=== PATIENT | male | born 1950 | race Caucasian/White ===

== ENCOUNTER 2017-08-01 13:25 | Emergency (ER) | payer OTHER ==
[~2017-08-01] VITALS: Ht 525.8 cm; Wt 93.9 kg
[2017-08-01 16:17] VITALS: BP 136/68
== END 2017-08-01 16:17 | disposition home or self-care (01) ==
LOC: ED 13:25
DX: M54.5 Low back pain (principal); I10 Essential (primary) hypertension; K21.9 Gastro-esophageal reflux disease without esophagitis; Z79.899 Other long term (current) drug therapy
CPT/HCPCS: J1885

== ENCOUNTER 2018-12-27 20:31 | Emergency (ER) | payer OTHER ==
[~2018-12-27] VITALS: Ht 167.6 cm; Wt 88.9 kg
[2018-12-27 21:01] VITALS: BP 136/89; Ht 167.6 cm; Wt 88.9 kg
[2018-12-27 22:57] LABS: CALCIUM 8.9 mg/dL (8.5-10.1); CARBON DIOXIDE 28.8 mmol/L (21-32); CREATININE SERUM 2.5 mg/dL (0.7-1.3); POTASSIUM SERUM 3.7 mmol/L (3.5-5.1)
== END 2018-12-27 23:24 | disposition home or self-care (01) ==
LOC: ED 20:31
PROVIDERS: Emergency Medicine
DX: J40 Bronchitis, not specified as acute or chronic (principal); K21.9 Gastro-esophageal reflux disease without esophagitis; F41.9 Anxiety disorder, unspecified; I10 Essential (primary) hypertension; E78.00 Pure hypercholesterolemia, unspecified

== ENCOUNTER 2018-12-30 19:27 | Emergency (ER) | payer OTHER ==
[~2018-12-30] VITALS: Ht 167.6 cm; Wt 88.5 kg
[2018-12-30 19:37] VITALS: Ht 167.6 cm; Wt 88.5 kg
[2018-12-30 23:32] VITALS: BP 142/79
== END 2018-12-30 23:32 | disposition home or self-care (01) ==
LOC: ED 19:27
DX: K21.9 Gastro-esophageal reflux disease without esophagitis (principal); F41.9 Anxiety disorder, unspecified; E78.00 Pure hypercholesterolemia, unspecified
CPT/HCPCS: 87804; Q0092